=== PATIENT | male | born 1990 | race African-American/Black ===

== ENCOUNTER 2016-09-08 18:25 | Observation (INO) | payer MEDICAID, OTHER ==
[2016-09-08] MEDS ORDERED: ONDANSETRON 4 MG TAB.RAPDIS PO ONE (19:49)
[2016-09-08] MEDS ORDERED: OXYCODONE-ACETAMINOPHEN 5-325 MG TABLET PO ONE (19:49)
--- NOTE | 2016-09-08 19:49 | ER Document Report ---
HPI - HPI Pain Level: 3 - CARDIOVASCULAR Cardiovascular: DENIES: Chest pain - DERM Skin Color: Normal Past Medical History Renal/ Medical History: Denies: Hx Peritoneal Dialysis - Immunizations Hx Diphtheria, Pertussis, Tetanus Vaccination: Yes Vertical Provider Document - INFECTION CONTROL TRAVEL OUTSIDE OF THE [place] IN LAST 30 DAYS: No - RESPIRATORY O2 Sat by Pulse Oximetry: 99 Course - Vital Signs Vital signs: Temp Pulse Resp BP Pulse Ox 98.5 F 77 18 142/75 H 99 09/08/16 18:30 09/08/16 18:30 09/08/16 18:30 09/08/16 18:30 09/08/16 18:30
--- NOTE | 2016-09-08 20:54 | RADIOLOGY REPORT (SQ) ---
EXAM DESCRIPTION: KNEE LEFT 4 VIEW COMPLETED DATE/TIME: 09/08/2016 8:42 pm REASON FOR STUDY: heavy sheet metal hit left knee, bruise /cut COMPARISON: None. NUMBER OF VIEWS: Four views. TECHNIQUE: AP, lateral, and both oblique radiographic images acquired of the left knee. LIMITATIONS: None. FINDINGS: MINERALIZATION: Normal. BONES: No acute fracture or dislocation. No worrisome bone lesions. JOINT: Large effusion. SOFT TISSUES: Anterior soft tissue laceration -subcutaneous gas and soft tissue swelling. No radio-o paque foreign body. OTHER: No other significant finding. IMPRESSION: No fracture. Large joint effusion.Anterior soft tissue laceration -subcutaneous gas and soft tissue swelling. No radio-opaque foreign body. TECHNICAL DOCUMENTATION: JOB ID: [id number] [email or web address]- All Rights Reserved
[2016-09-08] MEDS ORDERED: LIDOCAINE 1% INJ-PF (10 MG/ML) 30 ML SDV INJ ONE (21:18)
--- NOTE | 2016-09-08 21:50 | ER Document Report ---
ED Medical Screen (RME) - General Chief Complaint: Laceration Stated Complaint: LACERATION TO LEFT LEG Time Seen by Provider: 09/08/16 19:48 Mode of Arrival: Ambulatory Information source: Patient Notes: 25-year-old male whose tetanus is up-to-date was working with piece of sheet metal 3:30 PM. He dropped it which hit his left knee and sliced a deep laceration. He put Neosporin in it, but the pain is so bad and has increased swelling to the knee. Upon exam there is a joint effusion with 2 cm laceration to lateral superior knee. Pain med ordered and sent to xray to look for fx, effusion. I consulted at [address] Haddad who states the wound needs to be explored, antibiotics, and dr. navarro consulted. I have upgraded the pt to green, explained to the pt that another provider will take over, and will hang antibiotics at this time. TRAVEL OUTSIDE OF THE [place] IN LAST 30 DAYS: No - Related Data Allergies/Adverse Reactions: No Known Allergies Allergy (Unverified 09/08/16 18:32) Past Medical History Renal/ Medical History: Denies: Hx Peritoneal Dialysis - Immunizations Hx Diphtheria, Pertussis, Tetanus Vaccination: Yes Physical Exam - Vital signs Vitals: Temp Pulse Resp BP Pulse Ox 98.5 F 77 18 142/75 H 99 09/08/16 18:30 09/08/16 18:30 09/08/16 18:30 09/08/16 18:30 09/08/16 18:30 Course - Vital Signs Vital signs: Temp Pulse Resp BP Pulse Ox 98.5 F 77 18 142/75 H 99 09/08/16 18:30 09/08/16 18:30 09/08/16 18:30 09/08/16 18:30 09/08/16 18:30
[2016-09-08] MEDS ORDERED: CEFAZOLIN 1 GM/D5W RTU 50 ML IV SCH (22:00)
[2016-09-08] MEDS ORDERED: CEFAZOLIN 1 GM/D5W RTU 50 ML IV ONE (22:19)
[2016-09-08] MEDS ORDERED: CEFAZOLIN 1 GM/D5W RTU 1 GM/50 ML RTUPB IV ONE (22:30)
[2016-09-08] MEDS ORDERED: ONDANSETRON HCL INJ/PF 4 MG/2 ML SDV IV PRN (22:38)
[2016-09-08 22:52] LABS: ABSOLUTE MONOCYTES (AUTO) 0.9 10^3/uL (0.1-1.4); ABSOLUTE NEUT (AUTO) 10.4 10^3/uL (1.7-8.2); BASOPHILS % (AUTO) 0.3 % (0-2); EOSINOPHILS % (AUTO) 0.1 % (0-6); HEMATOCRIT 42.7 % (37.9-51.0); HEMOGLOBIN 13.8 g/dL (13.5-17.0); HGB HCT DIFFERENCE -1.3; LYMPHOCYTES % (AUTO) 8.1 % (13-45); MEAN CORPUSCULAR HEMOGLOBIN 25.9 pg (27.0-33.4); MEAN CORPUSCULAR HGB CONC 32.2 g/dL (32.0-36.0); MEAN CORPUSCULAR VOLUME 81 fl (80-97); MONOCYTES % (AUTO) 7.5 % (3-13); RED CELL DISTRIBUTION WIDTH 13.5 % (11.5-14.0); WHITE BLOOD COUNT 12.4 10^3/uL (4.0-10.5)
[2016-09-08 23:09] LABS: ANION GAP 12 (5-19); BLOOD UREA NITROGEN 13 mg/dL (7-20); CALCIUM 9.5 mg/dL (8.4-10.2); CARBON DIOXIDE 26 mmol/L (22-30); CHLORIDE 100 mmol/L (98-107); CREATININE RESULT 1.19 mg/dL (0.52-1.25); GLUCOSE 121 mg/dL (75-110); POTASSIUM 4.3 mmol/L (3.6-5.0); SODIUM 138.4 mmol/L (137-145)
--- NOTE | 2016-09-08 23:28 | ER Document Report ---
ED General - General Chief Complaint: Laceration Stated Complaint: LACERATION TO LEFT LEG Time Seen by Provider: 09/08/16 19:48 Mode of Arrival: Ambulatory Notes: Patient is a 25-year-old male who was carrying sheet rock and then fell and a sharp end of a metal pipe cut into his left knee. The cut went just above his left patella. He has been unable to lift his leg and keep it straight since then. He says he is up-to-date on his tetanus shot. He has no chronic medical problems and is otherwise healthy. No weakness or numbness into the foot or distal leg. TRAVEL OUTSIDE OF THE [place] IN LAST 30 DAYS: No - Related Data Allergies/Adverse Reactions: No Known Allergies Allergy (Unverified 09/08/16 18:32) Home Medications: Current Home Medications No Home Medications 09/09/16 [History] Past Medical History - General Information source: Patient - Social History Smoking Status: Never Smoker Frequency of alcohol use: None Drug Abuse: None Family History: Reviewed & Not Pertinent Renal/ Medical History: Denies: Hx Peritoneal Dialysis - Immunizations Hx Diphtheria, Pertussis, Tetanus Vaccination: Yes Review of Systems - Review of Systems Notes: My Normal Review Basic REVIEW OF SYSTEMS: CONSTITUTIONAL : Denies fever, chills, or sweats. Denies recent illness. MUSCULOSKELETAL: Pain above left patella with laceration. SKIN: Denies rash or skin lesions. HEMATOLOGIC : Denies easy bruising or bleeding. NEUROLOGICAL: Denies sensory or motor loss. ALL OTHER SYSTEMS REVIEWED AND NEGATIVE. Physical Exam - Vital signs Vitals: Temp Pulse Resp BP Pulse Ox 98.5 F 77 18 142/75 H 99 09/08/16 18:30 09/08/16 18:30 09/08/16 18:30 09/08/16 18:30 09/08/16 18:30 - Notes Notes: General Appearance: Well nourished, alert, cooperative, no acute distress, no obvious discomfort. Vitals: reviewed, See vital signs table. Extremities: strength 5/5 in all extremities, good pulses in all extremities, patient has approximately 3 cm laceration just superior to the left patella. He is unable to lift his leg off the bed with extension of the left knee. He does have some swelling around the knee. Skin: Laceration above left patella. Neuro: speech clear, oriented x 3, normal affect, responds appropriately to questions. Course - Vital Signs Vital signs: Temp Pulse Resp BP Pulse Ox 98.5 F 65 12 135/86 H 100 09/09/16 01:22 09/09/16 01:22 09/09/16 01:22 09/09/16 01:22 09/09/16 01:22 - Laboratory Result Diagrams: 09/08/16 22:39 09/08/16 22:39 - Transfer of Care Notes: 09/09/16 07:17 I did discuss the case with Dr. gordon due to my concern that the patient has evidence of injury to the suprapatellar ligaments also fact patient is very large effusion on the x-ray of the knee with a deep laceration just above the patella. He requested that a thoroughly irrigate the wound and then loosely close it with stitches in place him in a knee immobilizer. I did thoroughly irrigate the wound. It was stitched closed. I covered the wound with a Xeroform gauze dressing. Patient was placed in the immobilizer. Patient will be admitted. Patient agrees with plan. Patient was given Ancef. Dictation of this chart was performed using voice recognition software; therefore, there may be some unintended grammatical errors. Procedures - Laceration/Wound Repair Left knee Wound length (cm): 3 Wound's Depth, Shape: Linear Laceration pre-procedure: Sterile drapes applied, Shur-Clens applied Anesthetic type: 1% Lidocaine w/epi Wound explored: Clean Wound Repaired With: Sutures Suture Size/Type: 4:0, Ethilon Number of Sutures: 3 Post-procedure wound care: Sterile dressing applied, Splint applied Post-procedure NV exam normal: Yes Complications: No Discharge - Discharge Clinical Impression: Laceration, Tendon injury Disposition: ADMITTED OBSERVATION Admitting Provider: [facility] Unit Admitted: Surgical Floor
[2016-09-09] MEDS ORDERED: CEFAZOLIN 2 GM/D5W RTU 50 ML IV SCH
[2016-09-09] MEDS: MORPHINE SULFATE 10 MG/ML INJ IV PRN (05:39)
[2016-09-09] MEDS: CEFAZOLIN 1 GM/D5W RTU 1 GM/50 ML RTUPB IV SCH ×4 (05:45→23:23)
[2016-09-09] MEDS ORDERED: RINGERS SOLUTION,LACTATED 1,000 ML IV PRN (09:09)
--- NOTE | 2016-09-09 10:23 | PDOC H&P ---
History of Present Illness Admission Date/PCP: 09/08/16 22:36 Patient complains of: Left knee pain History of Present Illness: SHANTHI PALOMARES is a 25 year old male who sustained injury to his left knee. He was carrying into rock when he tripped and fell onto a lead pipe which ultimately cut the upper aspect of his knee. Patient had notable bleeding and pain at the time of injury. He was brought to the emergency room where the area was irrigated and loosely closed. He has been receiving IV antibiotics and his tetanus is up-to-date. Current pain 07/07. Denies numbness or tingling. States his pain is improved with the pain medication. Social History Smoking Status: Never Smoker Frequency of Alcohol Use: None Hx Recreational Drug Use: No Hx Prescription Drug Abuse: No - Advance Directive Resuscitation Status: Full Code Family History Family History: Reviewed & Not Pertinent Parental Family History Reviewed: No Children Family History Reviewed: No Sibling(s) Family History Reviewed.: No Medication/Allergy Home Medications: No Home Medications 09/09/16 Allergies/Adverse Reactions: No Known Allergies Allergy (Unverified 09/08/16 18:32) Review of Systems Constitutional: ABSENT: chills, fever(s), headache(s), weight gain, weight loss Eyes: ABSENT: visual disturbances Ears: ABSENT: hearing changes Cardiovascular: ABSENT: chest pain, dyspnea on exertion, edema, orthropnea, palpitations Respiratory: ABSENT: cough, hemoptysis Gastrointestinal: ABSENT: abdominal pain, constipation, diarrhea, hematemesis, hematochezia, nausea, vomiting Genitourinary: ABSENT: dysuria, hematuria Musculoskeletal: PRESENT: as per HPI Integumentary: ABSENT: rash, wounds Neurological: ABSENT: abnormal gait, abnormal speech, confusion, dizziness, focal weakness, syncope Psychiatric: ABSENT: anxiety, depression, homidical ideation, suicidal ideation Endocrine: ABSENT: cold intolerance, heat intolerance, menstrual abnormalities, polydipsia, polyuria Hematologic/Lymphatic: ABSENT: easy bleeding, easy bruising, lymphadenopathy Physical Exam Vital Signs: Temp Pulse Resp BP Pulse Ox 98.4 F 86 15 122/70 98 09/09/16 07:27 09/09/16 07:27 09/09/16 07:27 09/09/16 07:27 09/09/16 07:27 Intake & Output 09/08/16 09/09/16 09/10/16 06:59 06:59 06:59 Intake Total 0 3 Output Total 0 Balance 0 3 General appearance: PRESENT: no acute distress, well-developed, well-nourished Head exam: PRESENT: atraumatic, normocephalic Eye exam: PRESENT: conjunctiva pink, EOMI, PERRLA. ABSENT: scleral icterus Ear exam: PRESENT: normal external ear exam Mouth exam: PRESENT: moist, tongue midline Neck exam: PRESENT: full ROM. ABSENT: carotid bruit, JVD, lymphadenopathy, thyromegaly Cardiovascular exam: PRESENT: RRR. ABSENT: diastolic murmur, rubs, systolic murmur Pulses: PRESENT: normal dorsalis pedis pul, +2 pedal pulses bilateral Vascular exam: PRESENT: normal capillary refill GI/Abdominal exam: PRESENT: normal bowel sounds, soft. ABSENT: distended, guarding, mass, organolmegaly, rebound, tenderness Rectal exam: PRESENT: deferred Musculoskeletal exam: PRESENT: other - Left lower extremity: Knee immobilizer removed today. Patient unable to straight leg raise against gravity. Intact plantar flexion/dorsiflexion. No sensory deficits. Notable effusion. Dorsalis pedis pulse 2+. Cap refill less than 2 seconds. Neurological exam: PRESENT: alert, awake, oriented to person, oriented to place , oriented to time, oriented to situation, CN II-XII grossly intact. ABSENT: motor sensory deficit Psychiatric exam: PRESENT: appropriate affect, normal mood. ABSENT: homicidal ideation, suicidal ideation Skin exam: PRESENT: dry, intact, warm. ABSENT: cyanosis, rash Results Laboratory Results: 09/08/16 22:39 09/08/16 22:39 09/08/16 09/08/16 22:39 22:39 WBC 12.4 H RBC 5.30 Hgb 13.8 Hct 42.7 MCV 81 MCH 25.9 L MCHC 32.2 RDW 13.5 Plt Count 248 Seg Neutrophils % 84.0 H Lymphocytes % 8.1 L Monocytes % 7.5 Eosinophils % 0.1 Basophils % 0.3 Absolute Neutrophils 10.4 H Absolute Lymphocytes 1.0 Absolute Monocytes 0.9 Absolute Eosinophils 0.0 Absolute Basophils 0.0 Sodium 138.4 Potassium 4.3 Chloride 100 Carbon Dioxide 26 Anion Gap 12 BUN 13 Creatinine 1.19 Est GFR ( Amer) > 60 Est GFR (Non-Af Amer) > 60 Glucose 121 H Calcium 9.5 Impressions: Knee X-Ray 09/08/16 20:18 IMPRESSION: No fracture. Large joint effusion.Anterior soft tissue laceration -subcutaneous gas and soft tissue swelling. No radio-opaque foreign body. Status: Image reviewed by me - Have reviewed patient's radiographs which demonstrate soft tissue defect along the proximal aspect of the knee with notable effusion. Assessment & Plan - Diagnosis (1) Laceration of left quadriceps muscle, fascia and tendon, initial encounter Qualifiers: Encounter type: initial encounter Qualified Code(s): S76.122A - Laceration of left quadriceps muscle, fascia and tendon, initial encounter Is this a current diagnosis for this admission?: Yes (2) Laceration of knee with complication Qualifiers: Encounter type: initial encounter Laterality: left Qualified Code(s): S81.012A - Laceration without foreign body, left knee, initial encounter Is this a current diagnosis for this admission?: YesPlan: Patient sustained a laceration over the superior patella given his lack of extension against gravity I am concerned about quadriceps tendon laceration today we discussed prognosis patient's injury and treatment options. The joint decision was made to proceed with operative intervention which includes exploration left knee with irrigation and excisional debridement possible quadriceps tendon repair. Risks and benefits of the surgical procedure have been explained including infection, postoperative pain, postoperative stiffness , weakness, rerupture and any unforeseen complication patient has verbalized understanding consented for the procedure. He also understands that he is high risk for infection will be treated prophylactically with antibiotics.
[2016-09-09] MEDS ORDERED: BUPIVACAINE HCL 0.5 % INJ/PF 30 ML SDV ONE (15:47)
[2016-09-09] MEDS ORDERED: PROPOFOL INJ 200 MG/20 ML VIAL IV ONE (17:56)
[2016-09-09] MEDS ORDERED: ACETAMINOPHEN 100 ML IV ONE (17:56)
[2016-09-09] MEDS ORDERED: FENTANYL CITRATE INJ/PF 250 MCG/5 ML AMPULE ONE (17:56)
[2016-09-09] MEDS ORDERED: MIDAZOLAM 2 MG/2 ML INJ ONE (17:56)
[2016-09-09] MEDS ORDERED: FENTANYL CITRATE INJ/PF 100 MCG/2 ML AMPUL IV PRN ×3 (18:28)
[2016-09-09] MEDS ORDERED: OXYCODONE-ACETAMINOPHEN 5-325 MG TABLET PO PRN ×2 (18:28)
[2016-09-09] MEDS ORDERED: DIPHENHYDRAMINE HCL 50 MG/ML VIAL IV PRN (18:28)
[2016-09-09] MEDS ORDERED: MEPERIDINE HCL/PF INJ 25 MG/1 ML DISP.SYRIN IV PRN (18:28)
[2016-09-09] MEDS ORDERED: ONDANSETRON HCL INJ/PF 4 MG/2 ML SDV IV PRN (18:28)
[2016-09-09] MEDS ORDERED: MORPHINE SULFATE 10 MG/ML INJ IV PRN (18:28)
[2016-09-09] MEDS ORDERED: PROMETHAZINE HCL INJ 25 MG/1 ML VIAL IV PRN ×2 (18:28)
[2016-09-09] MEDS ORDERED: BUPIVACAINE HCL 0.5%-EPI 1:200000 INJ/PF 30 ML VIAL ONE (18:38)
[2016-09-09] MEDS ORDERED: BUPIVACAINE HCL 0.5%-EPI 1:200000 INJ/PF 30 ML VIAL INJ ONE (18:41)
--- NOTE | 2016-09-09 19:05 | Operative Report ---
Operative Report DATE OF SURGERY: 09/09/16 PREOPERATIVE DIAGNOSIS: Left knee traumatic arthrotomy, quadriceps laceration POSTOPERATIVE DIAGNOSIS: Left knee traumatic arthrotomy, partial quadriceps laceration approximately 6 cm. OPERATION: Left knee excisional irrigation and debridement with quadriceps repair SURGEON: ROSLYN ROY ANESTHESIA: GA COMPLICATIONS: None ESTIMATED BLOOD LOSS: <25cc PROCEDURE: Indication for above procedure: 25-year-old male who sustained a accidental puncture injury after tripping over sheet metal into his left knee. Patient was seen at the emergency room where he was started on antibiotics and his tetanus was up-to-date. He was subsequently admitted for operative treatment and started on IV antibiotics. We discussed treatment options and given the traumatic arthrotomy and risk for infection decision was made to proceed with operative treatment. Procedure In Detail: Patient was seen and evaluated in the preoperative holding area. The LEFT lower extremity was initialized and marked. Patient received 2g of Ancef IV for bacterial prophylaxis. Patient was taken back to the operative room where transferred to the operative table and placed under general anesthesia. Once they were adequately anesthetized a nonsterile tourniquet was placed on the lower extremity. A surgical team debriefing was performed ensuring all instrumentation was available, the surgical procedure was discussed with possible concerns reviewed. The lower extremity was prepped with ChloraPrep and draped in a sterile fashion. A timeout was done identifying correct patient, procedure and extremity everyone in attendance agree with this and verbalized no concerns. The extremity was exsanguinated the tourniquet was inflated to 300 mmHg. The 4 cm oblique laceration on the superior lateral aspect of the patella was opened proximally and distally by 2 cm. Sharp dissection was performed down to the quadriceps tendon developing full-thickness skin flaps. There was a 6 cm oblique laceration of the quadriceps tendon extending into the vastus medialis musculature. There is no evidence of gross contamination. There was significant hemarthrosis which was evacuated. The wound was copiously irrigated with normal saline a total of 3 L of pulse lavage was utilized successfully irrigating the knee joint. A peripheral vascular was coagulated with electrocautery. The quadriceps tendon was then secured utilizing #2 FiberWire suture. There was no stress on the repair from 0 of flexion to 130 of flexion. Subcutaneous tissues were then closed with interrupted 2-0 Vicryl suture. Skin was closed with wilton. 30 cc of 0.5% Marcaine with epinephrine was injected within the joint and throughout the adjacent soft tissues. Wound was dressed with Xeroform, 4 x 4's, ABD, cast padding and patient was placed in his knee immobilizer. Sponge counts, instrument counts, needle counts counts were correct. Patient was then awoken from anesthesia. Transferred from the operating room table to the operating room stretcher. There was no intraoperative complications patient tolerated procedure well stable to PACU. Postoperative plan: Patient will follow in the office in 10-14 days. He will be discharged either today or tomorrow at his convenience. Will be started on Keflex for bacterial prophylaxis. He may be weightbearing as tolerated in a knee immobilizer. Will initiate physical therapy at follow-up visit.
[2016-09-09] MEDS ORDERED: HEPARIN SOD (PORCINE) 5,000 UNIT/ML 1 ML SYRINGE SUBCUT SCH (22:00)
[2016-09-10] MEDS: OXYCODONE-ACETAMINOPHEN 5-325 MG TABLET PO PRN ×3 (01:47→12:54)
[2016-09-10] MEDS: MORPHINE SULFATE 10 MG/ML INJ IV PRN ×4 (05:22→11:17)
[2016-09-10] MEDS: CEFAZOLIN 1 GM/D5W RTU 1 GM/50 ML RTUPB IV SCH (06:20)
[2016-09-10 12:27] VITALS: BP 134/74
[2016-09-10] MEDS ORDERED: OXYCODONE-ACETAMINOPHEN 5-325 MG TABLET PO ONE (13:30)
--- NOTE | 2016-09-16 15:25 | PDOC DISCHARGE SUMMARY ---
General - Admit/Disc Date/PCP Admission Date/Primary Care Provider: 09/08/16 22:36 Discharge Date: 09/10/16 - Discharge Diagnosis (1) Laceration of left quadriceps muscle, fascia and tendon, initial encounter Is this a current diagnosis for this admission?: Yes (2) Laceration of knee with complication Is this a current diagnosis for this admission?: Yes - Additional Information Resuscitation Status: Full Code Discharge Diet: As Tolerated Discharge Activity: No Driving, No Lifting Over 10 Pounds, No Lifting/Push/ Pulling Home Medications: Aspirin [Aspirin 325 mg Tablet] 325 mg PO DAILY #14 tablet 09/09/16 Cephalexin Monohydrate [Keflex 500 mg Capsule] 500 mg PO QID #28 capsule Oxycodone HCl/Acetaminophen [Percocet 5-325 mg Tablet] 1 - 2 tab PO ASDIR PRN # 40 tablet 09/09/16 History of Present Illness History of Present Illness: SHANTHI PALOMARES is a 25 year old male who sustained injury to his left knee. He was carrying into rock when he tripped and fell onto a lead pipe which ultimately cut the upper aspect of his knee. Patient had notable bleeding and pain at the time of injury. He was brought to the emergency room where the area was irrigated and loosely closed. He has been receiving IV antibiotics and his tetanus is up-to-date. Current pain 4/10. Denies numbness or tingling. States his pain is improved with the pain medication. Hospital Course Hospital Course: He was admitted to the orthopedic service on 09/08/16 for laceration and traumatic arthrotomy of his left knee. He underwent operative exploration on which demonstrated laceration of the quadriceps however complete discontinuity was not appreciated intraoperatively formal irrigation and excisional debridement was performed at the level of the injury. Patient tolerated procedure well was placed in a knee immobilizer postoperatively. Patient received appropriate antibiotics and given the fact it was not gross contamination at the level of injury was determined he was stable for discharge to home on postop day 09/10/16 after progressing appropriately in physical therapy. Physical Exam Vital Signs: Temp Pulse Resp BP Pulse Ox 98.5 F 83 16 134/74 H 99 09/10/16 12:20 09/10/16 12:20 09/10/16 12:20 09/10/16 12:01 09/10/16 12:20 General appearance: PRESENT: no acute distress, cooperative Head exam: PRESENT: atraumatic, normocephalic Eye exam: PRESENT: conjunctiva pink, EOMI, PERRLA. ABSENT: scleral icterus Ear exam: PRESENT: TM's normal bilaterally Mouth exam: PRESENT: moist Neck exam: PRESENT: full ROM. ABSENT: carotid bruit, JVD, lymphadenopathy, thyromegaly Respiratory exam: PRESENT: unlabored Cardiovascular exam: PRESENT: RRR. ABSENT: diastolic murmur, rubs, systolic murmur Pulses: PRESENT: normal dorsalis pedis pul, +2 pedal pulses bilateral Vascular exam: PRESENT: normal capillary refill GI/Abdominal exam: PRESENT: normal bowel sounds, soft. ABSENT: distended, guarding, mass, organolmegaly, rebound, tenderness Rectal exam: PRESENT: deferred Neurological exam: PRESENT: alert, awake, oriented to person, oriented to place , oriented to time, oriented to situation, CN II-XII grossly intact. ABSENT: motor sensory deficit Psychiatric exam: PRESENT: appropriate affect, normal mood. ABSENT: homicidal ideation, suicidal ideation Skin exam: PRESENT: dry, intact, warm. ABSENT: cyanosis, rash Results Laboratory Results: 09/08/16 22:39 09/08/16 22:39 Impressions: Knee X-Ray 09/08/16 20:18 IMPRESSION: No fracture. Large joint effusion.Anterior soft tissue laceration -subcutaneous gas and soft tissue swelling. No radio-opaque foreign body. Plan Discharge Plan: Patient progressed appropriate throughout hospital course on 09/10/16 patient is orthopedically stable for discharge to home after evaluated by physical therapy who deemed patient competent to perform home exercise program. Patient will continue p.o. antibiotics. Will follow-up in the office in 10-14 days will proceed with wound check at that time. Patient has increasing pain, redness, swelling, temperature greater than 101.5 or any questions or concerns he should contact our office to be seen prior to scheduled appointment. Patient was written instructions and instructions with stable for discharge to home.
== END 2016-09-10 13:00 | disposition home or self-care (01) ==
LOC: ER 18:25 → EH 22:36 → UNDOADMOB 23:18 → EH 23:18 → 4W 09-09 01:17
PROVIDERS: ADMIT Orthopaedic Surgery; ATTEND Orthopaedic Surgery
PROC: 0HQLXZZ Repair Left Lower Leg Skin, External Approach (ICD-10-PCS; 2016-09-09)
PROC: 0KQT0ZZ Repair Left Lower Leg Muscle, Open Approach (ICD-10-PCS; principal; 2016-09-09 17:00)
DX: S76.122A Laceration of left quadriceps muscle, fascia and tendon, initial encounter (principal); S81.012A Laceration without foreign body, left knee, initial encounter; W18.09XA Striking against other object with subsequent fall, initial encounter
CPT/HCPCS: 13121; 99284; 96365; 36415; 85025; 80048; 73562; 97163; 12002; G0378 ×3; L1830; J2250; J3490 ×2; J0690 ×3; S0119; J3010; J2270 ×2; J7120; J2704; J0131; 01320

== ENCOUNTER → 2019-10-03 | Outpatient (CLI) | payer OTHER ==
[2019-10-03 16:14] VITALS: BP 108/60
--- NOTE | 2019-10-03 16:14 | ER RDC ASSESSMENT REPORT ---
Intake - In the Last 14 days Have you traveled outside [place]?: No Have you been in close contact with someone CONFIRMED: No Worked in Healthcare?: No - Symptoms Subjective Fever([place] feverish): Yes Chills: No Muscule Aches: No Runny Nose: No Sore Throat: No Cough (New or worsening chronic cough): No Shortness of breath: No Nausea or Vomiting: No Headache: Yes Abdominal Pain: No Diarrhea(3 or more loose stools in last 24 hours): No - Do you have any of the following Chronic lung disease: Asthma or emphysema or COPD: Yes Chronic Lung Disease Comment: asthma Cystic Fibrosis: No Diabetes: No High Blood Pressure: No Cardiovascular Disease: No Chronic Kidney Disease: No Chronic Liver Disease: No Chronic blood disorder like Sickle Cell Disease: No Weak immune system due to disease or medication: No Neurologic condition that limits movement: No Developmental delay - Moderate to Severe: No Recent (within past 2 weeks) or current : No Morbid Obesity (>100 pounds over ideal weight): No - Objective Vital Signs: 5'8" 155 lb Temperature: 98.1 F Pulse Rate: 66 Respiratory Rate: 12 Blood Pressure: 108/60 O2 Sat by Pulse Oximetry: 97 Objective: Given above, testing performed: flu, covid Disposition: Home; Selfcare General - General Stated Complaint: fatigue Time Seen by Provider: 10/03/19 14:54 Mode of Arrival: Ambulatory Information source: Patient - HPI Notes: 28-year-old male presents to [facility] clinic for COVID-19 testing. Patient has no known exposure to COVID-19 positive individual. Patient does have medical history significant for asthma as a child. Patient reporting onset of symptoms 10/01/2019. He is reporting mild fever, headache, fatigue. No exacerbating or relieving factors. He denies any chills, myalgia, rhinorrhea, sore throat, cough, shortness of breath, nausea or vomiting, abdominal pain or diarrhea. - Related Data Allergies/Adverse Reactions: No Known Allergies Allergy (Unverified 09/08/16 18:32) Past Medical History - General Information source: Patient - Social History Smoking Status: Current Some Day Smoker Smoking Education Provided: Yes Family History: Reviewed & Not Pertinent - Past Medical History Cardiac Medical History: Reports: None Pulmonary Medical History: Reports: Hx Asthma EENT Medical History: Reports: None Neurological Medical History: Reports: None Endocrine Medical History: Reports: None Renal/ Medical History: Reports: None. Denies: Hx Peritoneal Dialysis Malignancy Medical History: Reports None GI Medical History: Reports: None Musculoskeletal Medical History: Reports None Skin Medical History: Reports None Psychiatric Medical History: Reports: None Traumatic Medical History: Reports: None Infectious Medical History: Reports: None Past Surgical History: Reports: None Physical Exam - General General appearance: Appears well, Alert In distress: None Notes: PHYSICAL EXAMINATION: GENERAL: Well-appearing and in no acute distress. HEAD: Atraumatic, normocephalic. EYES: sclera anicteric, conjunctiva are normal. ENT: nares patent. Moist mucous membranes. NECK: Normal range of motion, supple without lymphadenopathy LUNGS: CTAB and equal. No wheezes rales or rhonchi. HEART: Regular rate and rhythm without murmurs ABDOMEN: Soft, nontender, normal bowel sounds, no guarding. EXTREMITIES: Normal range of motion, no pitting edema. No cyanosis. NEUROLOGICAL: Cranial nerves grossly intact. Normal speech. PSYCH: Normal mood, normal affect. SKIN: Warm, Dry, normal turgor, no rashes or lesions noted Patient Education/Counseling Counseling/Education: Patient presents with upper respiratory symptoms worrisome for possible Covid 19. Patient does not have emergency worrying symptoms such as difficulty breathing, shortness of breath, chest pain, pressure, confusion or cyanosis. Patient appears suitable for discharge as vital signs are stable and patient is nontoxic in appearance. Good return precautions have been discussed with patient, patient verbalized understanding and is agreeable with discharge plan of care at this time. Guidance for worsening S/SX: As a person under investigation for Covid 19, the [place] department of Health and Human Services, division of public health advises you to adhere to the following guidance until your test results are reported to you. If your test result is positive, you will receive additional information from your provider and your local health department at that time. Remain at home until you are cleared by the health provider or public health authorities. Keep a log of visitors to your home, notify any visitors to your home of your isolation status. If you plan to move to a new address or leave the county, notify the local health department in your County. Call your doctor or seek care if you have an urgent medical need. Before seeking medical care, call ahead to get instructions from the provider before arriving at the medical office clinic or hospital. Notify them that you are being tested for the virus that causes Covid 19 so that arrangements can be made, as necessary, to prevent transmission to others in the healthcare setting. Next, notify the local health department in your county. If a medical emergency arises and you need to call 911, inform the first responders that you are being tested for the virus that causes Covid 19. Next, notify the local health department in your county. RDC Discharge - Discharge Clinical Impression: Encounter for screening laboratory testing for COVID-19 virus Fatigue Qualifiers: Fatigue type: unspecified Qualified Code(s): R53.83 - Other fatigue Condition: Good Disposition: Home; Selfcare
[2019-10-03 16:47] LABS: A TYPE INFLUENZA AG NEGATIVE (NEGATIVE); B INFLUENZA AG NEGATIVE (NEGATIVE)
== END ==
LOC: RDC 13:34
PROVIDERS: ATTEND Registered Nurse
DX: Z20.828 Contact with and (suspected) exposure to other viral communicable diseases (principal); R50.9 Fever, unspecified; R53.83 Other fatigue; R51 Headache; J45.909 Unspecified asthma, uncomplicated
CPT/HCPCS: 87635; 87804; C9803; 99201